=== PATIENT | female | born 1985 | race Caucasian/White ===

== ENCOUNTER → 2021-09-08 | Outpatient (CLI) | payer OTHER ==
[~2021-09-08] MED LIST: ECOTRIN81 MG PO; IBUPROFEN600 MG PO; MEDROL4 MG PO; NITROSTAT0.4 MG SL; NORFLEX 100 MG100 MG PO; OMNICEF 300 MG300 MG PO; PREDNISONE 50 M50 MG PO; PREDNISONE20 MG PO; PROAIR HFA8.5 GM INH; TESSALON PERLE100 MG PO; ZITHROMAX250 MG PO; ZOFRAN4 MG PO; [UNRECOGNIZED DRUG - REMARK]
== END ==
LOC: MAMO 08:22
DX: Z12.31 Encounter for screening mammogram for malignant neoplasm of breast (principal); N64.89 Other specified disorders of breast
CPT/HCPCS: 77063; 77067

== ENCOUNTER → 2021-09-22 | Outpatient (CLI) | payer OTHER | LOC: US 13:30 → MAMO 13:30 | DX: R92.2 Inconclusive mammogram (principal) | CPT/HCPCS: 76641-RT; 77065; G0279 ==

== ENCOUNTER → 2021-10-25 | Outpatient (CLI) | payer OTHER | LOC: KOH-I 12:34 | DX: M25.561 Pain in right knee (principal); M25.461 Effusion, right knee; M71.21 Synovial cyst of popliteal space [Baker], right knee; S83.281A Other tear of lateral meniscus, current injury, right knee, initial encounter; S76.111A Strain of right quadriceps muscle, fascia and tendon, initial encounter; W19.XXXA Unspecified fall, initial encounter; M22.8X1 Other disorders of patella, right knee | CPT/HCPCS: 73721 ==

== ENCOUNTER → 2021-12-02 | Day surgery (SDC) | payer OTHER ==
[~2021-12-02] MED LIST changes: +ACETAMINOPHEN-1 EAC1 PO; +CARTIA XT180 MG PO; +HYDROXYZINE HCL10 MG PO; +IBUPROFEN800 MG PO; +PHENERGAN 25 MG25 M1 PO; +PROTONIX 40 MG40 M1 PO; +SEROQUEL200 MG PO; +SEROQUEL50 MG PO; +TIZANIDINE HCL4 M1 PO; +VENLAFAXINE HC150 MG PO
== END | disposition home or self-care (01) ==
LOC: OR 05:26
DX: S83.261A Peripheral tear of lateral meniscus, current injury, right knee, initial encounter (principal); M22.41 Chondromalacia patellae, right knee; M79.4 Hypertrophy of (infrapatellar) fat pad; F17.210 Nicotine dependence, cigarettes, uncomplicated; K21.9 Gastro-esophageal reflux disease without esophagitis; X58.XXXA Exposure to other specified factors, initial encounter; Y92.512 Supermarket, store or market as the place of occurrence of the external cause; Z20.822 Contact with and (suspected) exposure to COVID-19; Z85.820 Personal history of malignant melanoma of skin; Z88.6 Allergy status to analgesic agent; Z88.5 Allergy status to narcotic agent
CPT/HCPCS: 84703; J0171; J0690; J1100; J1885; J2001; J2250; J2405; J2704; J3010; J7120

== ENCOUNTER → 2022-04-12 | Outpatient (CLI) | payer BC, OTHER | LOC: MAMO 10:30 | DX: N64.89 Other specified disorders of breast (principal) | CPT/HCPCS: 77065 ==